=== PATIENT | female | born 1925 | race Asian ===

== ENCOUNTER → 2017-01-20 | Outpatient (CLI) | payer OTHER ==
[~2017-01-20] MED LIST: ACAR50TA11 PO; AMIO200T PO; APIX2.5T PO; DIGO125T PO; FURO40 PO; ISOS30TA11 PO; KDUR10 PO; LISI-660 PO; METO50 PO; NITR0.4T50 SL; POLY30DR OU; PRAV20TA4 PO
== END | disposition home or self-care (01) ==
LOC: RADPV 10:09
PROVIDERS: ATTEND Internal Medicine
DX: M48.56XA Collapsed vertebra, not elsewhere classified, lumbar region, initial encounter for fracture (principal); M51.86 Other intervertebral disc disorders, lumbar region; M43.16 Spondylolisthesis, lumbar region; I70.0 Atherosclerosis of aorta; M81.0 Age-related osteoporosis without current pathological fracture
CPT/HCPCS: 72100